=== PATIENT | female | born 1970 | race African-American/Black ===

== ENCOUNTER 2016-10-05 07:21 | Emergency (ER) | payer MEDICAID ==
[~2016-10-05] VITALS: Ht 165.1 cm; Wt 68.0 kg
[~2016-10-05 07:21] MED LIST: FLUC150T PO; HYDR-2758 PO; IBUP-1060 PO; LEVO500T59 PO; PRED-220 PO; PRED20TA PO
[2016-10-05 07:35] VITALS: BP 101/65
--- NOTE | 2016-10-05 07:51 | PHYS DOC ---
Past Medical History Past Medical History: STD, Other Additional Past Medical Histor: lupus Past Surgical History: Other Additional Past Surgical Histo: ORTHOPEDIC R ANKLE WITH HARDWARE Alcohol Use: None Drug Use: None Adult General Chief Complaint Chief Complaint: SEXUALLY TRANSMITTED DISEASE HPI HPI Patient is a 46 year old female presents to the emergency department. Patient states her boyfriend notified her that he had been treated for gonorrhea. Patient states she has been having yellow to green color drainage. Patient denies abdominal pain, nausea or vomiting. Patient also states she wants to checked for a UTI although denies urinary symptoms. Review of Systems Review of Systems Constitutional: Denies fever or chills [] Eyes: Denies change in visual acuity, redness, or eye pain [] HENT: Denies nasal congestion or sore throat [] Respiratory: Denies cough or shortness of breath [] Cardiovascular: No additional information not addressed in HPI [] GI: Denies abdominal pain, nausea, vomiting, bloody stools or diarrhea [] : Denies dysuria or hematuria C/o vaginal discharge Musculoskeletal: Denies back pain or joint pain [] Integument: Denies rash or skin lesions [] Neurologic: Denies headache, focal weakness or sensory changes [] Endocrine: Denies polyuria or polydipsia [] Current Medications Current Medications Current Medications Medications (Trade) Dose Ordered Sig/Elvis Start Time Stop Time Status Last Admin Dose Admin Azithromycin (Zithromax) 1,000 mg 1X ONCE 10/05/16 08:00 10/05/16 08:01 DC 10/05/16 08:04 1,000 MG Ceftriaxone Sodium (Rocephin Im) 250 mg 1X ONCE 10/05/16 08:00 10/05/16 08:01 DC 10/05/16 08:04 250 MG Metronidazole (Flagyl) 2,000 mg 1X ONCE 10/05/16 08:00 10/05/16 08:01 DC 10/05/16 08:05 2,000 MG Allergies Allergies Allergies Coded Allergies Type Severity Reaction Last Updated Verified naproxen Allergy Intermediate rash 12/21/14 Yes tramadol Allergy Intermediate rash 12/21/14 Yes Physical Exam Physical Exam Constitutional: Well developed, well nourished, no acute distress, non-toxic appearance. [] HENT: Normocephalic, atraumatic, bilateral external ears normal, oropharynx moist, no oral exudates, nose normal. [] Eyes: PERRLA, EOMI, conjunctiva normal, no discharge. [] Neck: Normal range of motion, no tenderness, supple, no stridor. [] Cardiovascular:Heart rate regular rhythm Lungs & Thorax: no respiratory distress Skin: Warm, dry, no erythema, no rash. [] Back: No tenderness Extremities: No tenderness, no cyanosis, no clubbing, ROM intact, no edema. [] Neurologic: Alert and oriented X 3, normal motor function, normal sensory function, no focal deficits noted. [] Psychologic: Affect normal, judgement normal, mood normal. [] pelvic exam: speculum exam: patient with thick yellow to white vaginal discharge noted in the vaginal vault. Manual exam: bilateral adnexal tenderness , CMT noted. Current Patient Data Vital Signs Vital Signs Date Time Temp Pulse Resp B/P (MAP) Pulse Ox O2 Delivery O2 Flow Rate FiO2 10/05/16 07:35 98.2 89 16 99 Room Air 98.2 Lab Values Laboratory Tests Test 10/05/16 06:55 10/05/16 07:37 POC Urine HCG, Qualitative Hcg negative (Negative) Urine Collection Type Void Urine Color Yellow Urine Clarity Cloudy Urine pH 6.0 Urine Specific [place] >=1.030 Urine Protein 30 mg/dL (NEG-TRACE) Urine Glucose (UA) Negative mg/dL (NEG) Urine Ketones (Stick) Negative mg/dL (NEG) Urine Blood Negative (NEG) Urine Nitrite Negative (NEG) Urine Bilirubin Negative (NEG) Urine Urobilinogen Dipstick 0.2 mg/dL (0.2 mg/dL) Urine Leukocyte Esterase Small (NEG) Urine RBC Occ /HPF (0-2) Urine WBC 5-10 /HPF (0-4) Urine Squamous Epithelial Cells Many /LPF Urine Bacteria Many /HPF (0-FEW) Microbiology 10/05/16 Wet Prep - Final, Complete EKG EKG [] Radiology/Procedures Radiology/Procedures [] Course & Med Decision Making Course & Med Decision Making Pertinent Labs and Imaging studies reviewed. (See chart for details) Patient will be treated with Rocephin, flagyl and zithromax. Wet prep positive for BV, urine positive for UTI, patient will also be treated for PID as she had CMT and adnexal tenderness bilaterally. Patient instructed to avoid sexual intercourse for the next two weeks. Drink plenty of fluids such as water and cranberry juice. Avoid cranberry juice cocktail, carbonated beverages, caffeine , alcohol and citrus fruits. Followup with primary care provider in 5-7 days. Signs and symptoms to return to the emergency department has been provided. Patient also requested diflucan for yeast infection. [] Dragon Disclaimer Dragon Disclaimer This electronic medical record was generated, in whole or in part, using a voice recognition dictation system. Departure Departure Impression: Primary Impression: Exposure to STD Additional Impressions: UTI (lower urinary tract infection) Bacterial vaginosis PID (acute pelvic inflammatory disease) Disposition: HOME, SELF-CARE Condition: STABLE Referrals: NO PCP (PCP) Patient Instructions: Bacterial Vaginosis, [id number], Pelvic Inflammatory Disease, Mbed-[id number], Sexually Transmitted Disease, Mbcl-[id number], Urinary Tract Infection, Wmhw-[id number] Additional Instructions: You have been treated for sexually transmitted disease, pelvic inflammatory disease, bacterial vaginosis and urinary tract infection. Drink plenty of fluids such as water and cranberry juice Avoid cranberry juice cocktail, carbonated beverages, caffeine, alcohol and citrus fruits as these are considered irritants to the bladder Avoid sexual intercourse for the next 2 weeks Medications as prescribed Followup with primary care provider in 7-10 days Return to emergency department as needed for signs and symptoms that become worse. Scripts Fluconazole (DIFLUCAN) 150 Mg Tablet 1 TAB PO ONCE, #2 TAB Prov: CARLOS MARTEL APRN 10/05/16 Metronidazole (FLAGYL) 500 Mg Tablet 1 TAB PO BID, #14 TAB Prov: CARLOS MARTEL APRN 10/05/16 Doxycycline Hyclate (DOXYCYCLINE HYCLATE) 100 Mg Capsule 1 CAP PO BID, #28 CAP Prov: CARLOS MARTEL APRN 10/05/16 Nitrofurantoin Monohyd/M-Cryst (MACROBID 100 MG CAPSULE) 100 Mg Capsule 1 CAP PO BID, #14 CAP Prov: CARLOS MARTEL APRN 10/05/16 Problem Qualifiers CARLOS MARTEL APRN Oct 05, 2016 07:51
[2016-10-05] MEDS ORDERED: AZITHROMYCIN 250 MG TABLET. PO ONE (08:00)
[2016-10-05] MEDS ORDERED: cefTRIAXone IM 250 MG VIAL IM ONE (08:00)
[2016-10-05] MEDS ORDERED: metroNIDAZOLE 500 MG TABLET PO ONE (08:00)
[2016-10-05 08:01] LABS: BILIRUBIN,URINE NEGATIVE (NEG); GLUCOSE,URINE NEGATIVE (NEG); NITRITE,URINE NEGATIVE (NEG); PROTEIN,URINE 30 mg/dL (NEG-TRACE); UROBILINOGEN,URINE 0.2 mg/dL (0.2 mg/dL)
[2016-10-05 08:19] LABS: BACTERIA,URINE MANY /HPF (0-FEW); RBC,URINE OCC /HPF (0-2); SQUAMOUS EPITHELIAL CELL,UR MANY /LPF
[2016-10-05] MEDS ORDERED: NITR100C62 PO (08:34)
[2016-10-05] MEDS ORDERED: METR500T PO (08:34)
[2016-10-05] MEDS ORDERED: DOXY100C2 PO (08:34)
[2016-10-05] MEDS ORDERED: FLUC150T PO (08:34)
[2016-10-06] MEDS ORDERED: CIPR500T94 PO (06:16)
[2016-10-06] MEDS ORDERED: METR500T PO (06:16)
== END 2016-10-05 08:47 | disposition home or self-care (01) ==
LOC: ER 07:21
DX: Z20.2 Contact with and (suspected) exposure to infections with a predominantly sexual mode of transmission (principal); N39.0 Urinary tract infection, site not specified; N76.0 Acute vaginitis; B96.89 Other specified bacterial agents as the cause of diseases classified elsewhere; N73.9 Female pelvic inflammatory disease, unspecified; M32.9 Systemic lupus erythematosus, unspecified; Z88.6 Allergy status to analgesic agent; Z88.5 Allergy status to narcotic agent
CPT/HCPCS: 36415; 81001; 81025; 87086; 87491; 87591; 96372; 99284; J0696; Q0111; Q0144

== ENCOUNTER 2016-10-06 01:17 | Emergency (ER) | payer MEDICAID ==
[~2016-10-06] VITALS: Ht 165.1 cm; Wt 65.8 kg
[~2016-10-06 01:17] MED LIST changes: +DOXY100C2 PO; +METR500T PO; +NITR100C62 PO
[2016-10-06 01:31] VITALS: BP 117/77
--- NOTE | 2016-10-06 01:47 | PHYS DOC ---
Past Medical History Past Medical History: STD, Other Additional Past Medical Histor: lupus Past Surgical History: Other Additional Past Surgical Histo: ORTHOPEDIC R ANKLE WITH HARDWARE Alcohol Use: None Drug Use: None Adult General Chief Complaint Chief Complaint: RECTAL BLEED HPI HPI Patient is a 46 year old F who presents with rectal bleeding 3 weeks. Patient states every time she goes to the bathroom she has blood on the toilet paper. Patient declines any abdominal pain. Patient declines any nausea/vomiting/ diarrhea. Patient has no fevers. Patient was seen yesterday the emergency room for an STD however failed to mention she's had this rectal bleeding. Patient also denies any dizziness. Pertinent exam findings: Rectal exam shows no external hemorrhoids or internal hemorrhoids stool is normal color and no gross blood seen. ED course: Patient was seen and examined in the emergency room CBC, CMP, lipase, Hemoccult was ordered 0610: Made patient aware of the abnormal findings on the CT scan and recommended she follow up for the spot on the liver and further evaluation for her colitis and possible colonoscopy. On reexamination the patient is feeling better explained we would send her home with antibiotics. Pertinent results: Hemoccult positive Hemoglobin 11.2 CT scan: IMPRESSION: 1. Moderate thickened appearance of the wall of the sigmoid colon with surrounding fat stranding likely colitis. 2. Small amount of free fluid identified in the pelvis. 2. Ill-defined peripherally enhancing nodular density identified in the distal tip of the right lobe of liver measuring 2.6 cm probably a hemangioma. Follow-up to document stability. MDM: After reviewing the chart, CC/HPI/PMH, physical exam, [lab results], [ radiological results], I do not believe the patient has intra-abdominal emergency warranting further workup and admission at this time. Mid patient where of abnormal CT findings and the need to follow-up on this findings with her PCP. Explained the patient will be sent home with antibiotics to help with her colitis and the possible need for colonoscopy. Patient is comfortable being discharged home. Patient is stable for discharge. Additional verbal discharge instructions were provided to the patient and that if symptoms get worse or any new symptoms arise that are worrisome to the patient she is to return to the emergency room immediately Review of Systems Review of Systems GEN: Denies fevers, chills, sweats HEENT: Denies blurred vision, sore throat CV: Denies chest pain RESP: Denies shortness of air, cough GI: Rectal bleeding NEURO: Denies confusion, dizziness MSK: Denies weakness, joint pain/swelling Current Medications Current Medications Current Medications Medications (Trade) Dose Ordered Sig/Elvis Start Time Stop Time Status Last Admin Dose Admin Info (Do NOT chart on this entry -- for MONITORING) 1 each PRN DAILY PRN 10/06/16 02:45 10/08/16 02:44 Iohexol (Omnipaque 300 Mg/ml) 75 ml 1X ONCE 10/06/16 03:00 10/06/16 03:01 DC 10/06/16 03:10 75 ML Ketorolac Tromethamine (Toradol) 30 mg 1X ONCE 10/06/16 03:00 10/06/16 03:01 DC 10/06/16 03:03 30 MG Allergies Allergies Allergies Coded Allergies Type Severity Reaction Last Updated Verified naproxen Allergy Intermediate rash 12/21/14 Yes tramadol Allergy Intermediate rash 12/21/14 Yes Physical Exam Physical Exam GEN.: No apparent distress. Alert and oriented. HEENT: Head is normocephalic, atraumatic NECK: Supple. LUNGS: CTAB. HEART: RRR, S1, S2 present. Peripheral pulses intact ABDOMEN: Soft, nontender. Positive bowel sounds. Rectal exam shows no external hemorrhoids or internal hemorrhoids stool is normal color and no gross blood seen. EXTREMITIES: Without any cyanosis. NEUROLOGIC: Normal speech, normal tone PSYCHIATRIC: Normal affect, normal mood. SKIN: No ulcerations Current Patient Data Vital Signs Vital Signs Date Time Temp Pulse Resp B/P (MAP) Pulse Ox O2 Delivery O2 Flow Rate FiO2 10/06/16 01:31 98.1 89 14 117/77 (90) 98 Room Air 98.1 Lab Values Laboratory Tests Test 10/06/16 01:42 10/06/16 02:10 Stool Occult Blood Positive (NEG) White Blood Count 5.3 x10^3/uL (4.0-11.0) Red Blood Count 3.37 x10^6/uL (3.50-5.40) L Hemoglobin 11.2 g/dL (12.0-15.5) L Hematocrit 31.8 % (36.0-47.0) L Mean Corpuscular Volume 94 fL (79-100) Mean Corpuscular Hemoglobin 33 pg (25-35) Mean Corpuscular Hemoglobin Concent 35 g/dL (31-37) Red Cell Distribution Width 14.5 % (11.5-14.5) Platelet Count 378 x10^3/uL (140-400) Neutrophils (%) (Auto) 38 % (31-73) Lymphocytes (%) (Auto) 39 % (24-48) Monocytes (%) (Auto) 18 % (0-9) H Eosinophils (%) (Auto) 5 % (0-3) H Basophils (%) (Auto) 1 % (0-3) Neutrophils # (Auto) 2.0 x10^3uL (1.8-7.7) Lymphocytes # (Auto) 2.1 x10^3/uL (1.0-4.8) Monocytes # (Auto) 0.9 x10^3/uL (0.0-1.1) Eosinophils # (Auto) 0.3 x10^3/uL (0.0-0.7) Basophils # (Auto) 0.0 x10^3/uL (0.0-0.2) Sodium Level 142 mmol/L (136-145) Potassium Level 3.4 mmol/L (3.5-5.1) L Chloride Level 108 mmol/L (98-107) H Carbon Dioxide Level 28 mmol/L (21-32) Anion Gap 6 (6-14) Blood Urea Nitrogen 13 mg/dL (7-20) Creatinine 0.8 mg/dL (0.6-1.0) Estimated GFR (Cockcroft-Gault) 93.0 BUN/Creatinine Ratio 16 (6-20) Glucose Level 150 mg/dL (70-99) H Calcium Level 8.5 mg/dL (8.5-10.1) Total Bilirubin 0.3 mg/dL (0.2-1.0) Aspartate Amino Transferase (AST) 24 U/L (15-37) Alanine Aminotransferase (ALT) 32 U/L (14-59) Alkaline Phosphatase 107 U/L (46-116) Total Protein 7.0 g/dL (6.4-8.2) Albumin 2.9 g/dL (3.4-5.0) L Albumin/Globulin Ratio 0.7 (1.0-1.7) L Lipase 68 U/L (73-393) L Laboratory Tests 10/06/16 02:10 Laboratory Tests 10/06/16 02:10 EKG EKG [] Radiology/Procedures Radiology/Procedures CT abd and pelvis: IMPRESSION: 1. Moderate thickened appearance of the wall of the sigmoid colon with surrounding fat stranding likely colitis. 2. Small amount of free fluid identified in the pelvis. 2. Ill-defined peripherally enhancing nodular density identified in the distal tip of the right lobe of liver measuring 2.6 cm probably a hemangioma. Follow-up to document stability.[] Course & Med Decision Making Course & Med Decision Making Pertinent Labs and Imaging studies reviewed. (See chart for details) [] Dragon Disclaimer Dragon Disclaimer This electronic medical record was generated, in whole or in part, using a voice recognition dictation system. Departure Departure Impression: Primary Impression: Abdominal pain Additional Impressions: Colitis Rectal bleeding Disposition: HOME, SELF-CARE Condition: IMPROVED Referrals: NO PCP (PCP) Patient Instructions: Colitis Additional Instructions: Please follow up with her family doctor next one to 2 days return if symptoms increase Scripts Metronidazole (FLAGYL) 500 Mg Tablet 1 TAB PO BID, #14 TAB Prov: NATALIO AG DO 10/06/16 Ciprofloxacin Hcl (CIPRO) 500 Mg Tablet 1 TAB PO BID, #14 TAB Prov: NATALIO AG DO 10/06/16 Problem Qualifiers Primary Impression: Abdominal pain Abdominal location: generalized Qualified Codes: R10.84 - Generalized abdominal pain NATALIO AG DO Oct 06, 2016 01:47
[2016-10-06 01:59] LABS: NEG OBC FOB NEG; POS OBC FOB POS
[2016-10-06 02:16] LABS: BASO % 1 % (0-3); EOS % 5 % (0-3); HEMATOCRIT 31.8 % (36.0-47.0); HEMOGLOBIN 11.2 g/dL (12.0-15.5); LYMPH # 2.1 x10^3/uL (1.0-4.8); LYMPH % 39 % (24-48); MEAN CORPUSCULAR HEMOGLOBIN 33 pg (25-35); MEAN CORPUSCULAR HGB CONC 35 g/dL (31-37); MEAN CORPUSCULAR VOLUME 94 fL (79-100); MONO % 18 % (0-9); NEUT % 38 % (31-73); PLATELET COUNT 378 x10^3/uL (140-400); RED BLOOD COUNT 3.37 x10^6/uL (3.50-5.40); RED CELL DISTRIBUTION WIDTH 14.5 % (11.5-14.5); WHITE BLOOD COUNT 5.3 x10^3/uL (4.0-11.0)
[2016-10-06 02:33] LABS: CALCIUM 8.5 mg/dL (8.5-10.1); CREATININE 0.8 mg/dL (0.6-1.0); POTASSIUM 3.4 mmol/L (3.5-5.1)
[2016-10-06 02:38] LABS: ALBUMIN 2.9 g/dL (3.4-5.0); ALBUMIN/GLOBULIN RATIO 0.7 (1.0-1.7); TOTAL BILIRUBIN 0.3 mg/dL (0.2-1.0)
[2016-10-06] MEDS ORDERED: CONTRAST GIVEN MC PRN (02:45)
[2016-10-06] MEDS ORDERED: IOHEXOL 300 MG/ML 75 ML VIAL IV ONE (03:00)
[2016-10-06] MEDS ORDERED: KETOROLAC TROMETHAMINE 30 MG/ML INJ. IV ONE (03:00)
--- NOTE | 2016-10-06 03:38 | ACF ---
Admission Forms Criteria GASTROINTESTINAL BLEEDING Clinical Indications for Inpatient Care (Place 'X' for any and all applicable criteria): Ongoing inpatient care may be indicated for gastrointestinal bleeding with ANY ONE of the following (4)(20)(21)(22)(23)(24): [X]I. Active bleeding (eg, fresh voluminous blood in emesis or nasogastric aspirate, or per rectum) [ ]II. Hemodynamic instability [ ]III. Anticoagulation therapy or coagulopathy ((eg, advanced liver disease, irreversible anticoagulation) [ ]IV. Ischemic colitis (22) [ ]V. Endoscopy showing arterial bleeding, adherent clot, nonbleeding visible vessel, varices, flat red spots, ulcer size greater than 2 cm, or portal hypertensive gastropathy [ ]. High-risk low platelet count [ ]VII. Anemia requiring inpatient care as indicated by ANY ONE of the following a)[ ] Cognitive impairment b)[ ] Syncope c)[ ] Heart failure d)[ ] Chest pain e)[ ] Dyspnea f)[ ] Other findings suggesting inadequate perfusion (eg, peripheral or myocardial ischemia, end organ dysfunction) [ ]VIII. High-risk low platelet count [ ]IX. Suspected variceal cause of bleeding as indicated by ANY ONE of the following(27)(28): a)[ ] Known varices b)[ ] Hepatomegaly or splenomegaly c)[ ] Ascites d)[ ] Jaundice or scleral icterus e)[ ] History of liver disease (eg, cirrhosis) f)[ ] Physical findings of portal hypertension (eg, caput medusa) g)[ ] Comorbid disorder indicating risk for portal vein thrombosis (eg , abdominal surgery, sepsis, shock, exchange transfusion, prior umbilical vein catheterization) Extended stay may be needed until ALL of the following are present(20)(38)(47): [ ]a) Hemodynamic stability [ ]b) No evidence of active bleeding (eg, stable Hematocrit) [ ]c) Platelet count, prothrombin time, and partial thromboplastin time acceptable for next level of care [ ]d) Surgical or other acute intervention not needed [ ]e) Oral hydration and diet tolerated The original [employer] content created by Darya [employer] has been revised. The portions of the content which have been revised are identified through the use of italic text or in bold, and D[employer] has neither reviewed nor approved the modified material. All other unmodified content is copyright [facility]. Please see references footnoted in the original [facility] edition 2016 Admission Criteria Met?: Yes KEEGAN THOMPSON Oct 06, 2016 03:38
--- NOTE | 2016-10-06 05:10 | RAD ---
Examination: CT of the abdomen and pelvis with IV contrast HISTORY: History of rectal bleeding for 3 weeks, pain COMPARISON: None available TECHNIQUE: Axial CT images of the abdomen and pelvis were performed with IV contrast. Coronal and sagittal images also performed. Exposure: One or more of the following individualized dose reduction techniques were utilized for this examination: 1. Automated exposure control 2. Adjustment of the mA and/or kV according to patient size 3. Use of iterative reconstruction technique FINDINGS: The visualized bibasilar lungs grossly appears unremarkable. No evidence of free air identified in the abdomen. The visualized liver, demonstrates peripheral nodular ill-defined hypodensity in the distal tip of the right lobe of the liver inferiorly probably hemangioma. The visualized spleen, adrenals grossly appears unremarkable. The gallbladder is mildly distended the stomach is minimally distended. The visualized pancreas grossly appears unremarkable. The small bowel is nondilated. There is feces and gas noted in the ascending, transverse, descending colon. There is moderate thickened appearance of the wall of the sigmoid colon with surrounding fat stranding probably secondary to colitis. The visualized appendix grossly appears unremarkable. Urinary bladder is mildly distended. Mild fat stranding identified in the pelvis region. The bilateral kidneys enhance symmetrically. The caliber of the aorta grossly appears unremarkable. No evidence of lytic bony destructive lesion. IMPRESSION: 1. Moderate thickened appearance of the wall of the sigmoid colon with surrounding fat stranding likely colitis. 2. Small amount of free fluid identified in the pelvis. 2. Ill-defined peripherally enhancing nodular density identified in the distal tip of the right lobe of liver measuring 2.6 cm probably a hemangioma. Follow-up to document stability. Electronically signed by: To Lowery MD (10/06/2016 5:06 AM)
[2016-10-06] MEDS ORDERED: CIPR500T94 PO (06:16)
[2016-10-06] MEDS ORDERED: METR500T PO (06:16)
== END 2016-10-06 06:29 | disposition home or self-care (01) ==
LOC: ER 01:17
DX: K52.9 Noninfective gastroenteritis and colitis, unspecified (principal); K62.5 Hemorrhage of anus and rectum; M32.9 Systemic lupus erythematosus, unspecified; Z88.6 Allergy status to analgesic agent; Z88.5 Allergy status to narcotic agent
CPT/HCPCS: 36415; 74177; 80053; 82274; 83690; 85027; 96374; 99285; J1885; Q9967

== ENCOUNTER 2017-01-08 18:58 | Emergency (ER) | payer MEDICAID ==
[~2017-01-08] VITALS: Ht 165.1 cm; Wt 65.8 kg
[~2017-01-08 18:58] MED LIST changes: +CIPR500T94 PO
[2017-01-08 19:26] VITALS: BP 111/84
[2017-01-08] MEDS ORDERED: TOBR5DRO6 EACHEYE (19:52)
[2017-01-08] MEDS ORDERED: KETO5DRO4 EACHEYE (19:52)
[2017-01-08] MEDS ORDERED: CETI10TA22 PO (19:53)
--- NOTE | 2017-01-08 19:54 | PHYS DOC ---
Past Medical History Past Medical History: Hypertension Additional Past Medical Histor: lupus Past Surgical History: Other Additional Past Surgical Histo: r ankle,r knee, r arm Alcohol Use: None Drug Use: None Adult General Chief Complaint Chief Complaint: EYE PROBLEMS HPI HPI Patient is a 46 year old female who presents with bilateral eye irritation with itching, yellow drainage, and swelling that she noted this morning. Patient denies any vision loss. Review of Systems Review of Systems Constitutional: Denies fever or chills [] Eyes: bilateral eye irritation, yellow drainage, and swelling Musculoskeletal: Denies back pain or joint pain [] Integument: Denies rash or skin lesions [] Neurologic: Denies headache, focal weakness or sensory changes [] Allergies Allergies Allergies Coded Allergies Type Severity Reaction Last Updated Verified naproxen Allergy Intermediate rash 12/21/14 Yes tramadol Allergy Intermediate rash 12/21/14 Yes Physical Exam Physical Exam Constitutional: Well developed, well nourished, no acute distress, non-toxic appearance. [] HENT: Normocephalic, atraumatic, bilateral external ears normal, oropharynx moist, no oral exudates, nose normal. [] Eyes: PERRLA, EOMI, bilateral upper eyelids have mild swelling. Bilateral conjunctiva are mildly injected with small amount of greenish discharge noted on bilateral eye infections. Skin: Warm, dry, no erythema, no rash. [] Neurologic: Alert and oriented X 3, normal motor function, normal sensory function, no focal deficits noted. [] Psychologic: Affect normal, judgement normal, mood normal. [] Current Patient Data Vital Signs Vital Signs Date Time Temp Pulse Resp B/P (MAP) Pulse Ox O2 Delivery O2 Flow Rate FiO2 01/08/17 19:26 98.4 98 18 98 Room Air 98.4 EKG EKG [] Radiology/Procedures Radiology/Procedures [] Course & Med Decision Making Course & Med Decision Making Pertinent Labs and Imaging studies reviewed. (See chart for details) Patient has bilateral bacterial conjunctivitis as well as allergic conjunctivitis area and recommended she tries to use [id number] Zyrtec for seasonal allergies, she is refusing. She was discharged with Zaditor eyedrops and tobramycin eyedrops. Follow-up with the career resource technician provided in 1-2 weeks. Dragon Disclaimer Dragon Disclaimer This electronic medical record was generated, in whole or in part, using a voice recognition dictation system. Departure Departure Impression: Primary Impression: Acute bacterial conjunctivitis Additional Impression: Allergic conjunctivitis, bilateral Disposition: 01 HOME, SELF-CARE Condition: STABLE Referrals: NO PCP (PCP) Fiorella DOMINGUEZ MD follow up in one week Patient Instructions: Allergic Conjunctivitis, Bacterial Conjunctivitis, Easy- to-Read Additional Instructions: You were seen with bilateral eye infections, this could've come from seasonal allergies affecting your eyes, you can get seasonal allergies anytime in your life including as adults. Use the prescribed medications as ordered. Keep your hands clean. Do not wear contact lenses until the infection has cleared out. Do not put makeup on until the infection has cleared up. Follow-up with the provided career resource technician in 1-2 weeks. Scripts Cetirizine Hcl (ZYRTEC) 10 Mg Tablet 1 TAB PO DAILY, #30 TAB 2 Refills Prov: ELISA VASQUEZ APRN 01/08/17 Ketotifen Fumarate (ZADITOR) 5 Ml Drops 1 DROP EACHEYE BID, #5 ML Prov: ELISA VASQUEZ APRN 01/08/17 Tobramycin (TOBRAMYCIN) 5 Ml Drops 1 DROP EACHEYE Q4HRS W/A, #5 ML Prov: ELISA VASQUEZ APRN 01/08/17 Problem Qualifiers Primary Impression: Acute bacterial conjunctivitis Laterality: bilateral Qualified Codes: H10.33 - Unspecified acute conjunctivitis, bilateral ELISA VASQUEZ APRN Jan 08, 2017 19:54
== END 2017-01-08 20:01 | disposition home or self-care (01) ==
LOC: ER 18:58
DX: H10.33 Unspecified acute conjunctivitis, bilateral (principal); H10.13 Acute atopic conjunctivitis, bilateral; I10 Essential (primary) hypertension; M32.9 Systemic lupus erythematosus, unspecified; Z88.6 Allergy status to analgesic agent
CPT/HCPCS: 99283

== ENCOUNTER 2017-01-12 19:02 | Emergency (ER) | payer MEDICAID ==
[~2017-01-12 19:02] MED LIST changes: +CETI10TA22 PO; +KETO5DRO4 EACHEYE; +TOBR5DRO6 EACHEYE
[2017-01-12 19:42] VITALS: BP 133/80
[2017-01-12] MEDS ORDERED: METH4TAB6 PO (20:17)
[2017-01-12] MEDS ORDERED: TRIA15CR TP (20:17)
--- NOTE | 2017-01-12 20:17 | PHYS DOC ---
Past Medical History Past Medical History: Hypertension Additional Past Medical Histor: lupus Past Surgical History: Other Additional Past Surgical Histo: r ankle,r knee, r arm Alcohol Use: None Drug Use: None Adult General Chief Complaint Chief Complaint: PAIN CONTROL HPI HPI Patient is a 46 year old female presents emergency room stating that she is having a lupus flare up. She states that she is having pain and discomfort above her eyelids. She states that she is having some joint pain and discomfort. She also states that she has a rash in which she needs tramadol: Cream for. Patient states that she has had no fevers no chills no nausea vomiting. Patient is also requesting that the prednisone for her flare up. Review of Systems Review of Systems Constitutional: Denies fever or chills [] Eyes: Denies change in visual acuity, redness, or eye pain [] HENT: Denies nasal congestion or sore throat [] Respiratory: Denies cough or shortness of breath [] Cardiovascular: No additional information not addressed in HPI [] GI: Denies abdominal pain, nausea, vomiting, bloody stools or diarrhea [] : Denies dysuria or hematuria [] Musculoskeletal: Denies back pain generalized joint pain [] Integument: rash denies skin lesions [] Neurologic: Denies headache, focal weakness or sensory changes [] Endocrine: Denies polyuria or polydipsia [] Allergies Allergies Allergies Coded Allergies Type Severity Reaction Last Updated Verified naproxen Allergy Intermediate rash 12/21/14 Yes tramadol Allergy Intermediate rash 12/21/14 Yes Physical Exam Physical Exam Constitutional: Well developed, well nourished, no acute distress, non-toxic appearance. [] HENT: Normocephalic, atraumatic, bilateral external ears normal, oropharynx moist, no oral exudates, nose normal. [] Eyes: PERRLA, EOMI, conjunctiva normal, no discharge. Bilateral eye irritation and the upper eyelids. Neck: Normal range of motion, no tenderness, supple, no stridor. [] Cardiovascular:Heart rate regular rhythm, no murmur [] Lungs & Thorax: Bilateral breath sounds clear to auscultation [] Abdomen: Bowel sounds normal, soft, no tenderness, no masses, no pulsatile masses. [] Skin: Warm, dry, no erythema, patient with no significant rash noted on the left side of her neck. Back: No tenderness Extremities: No tenderness, no cyanosis, no clubbing, ROM intact, no edema. [] Neurologic: Alert and oriented X 3, normal motor function, normal sensory function, no focal deficits noted. [] Psychologic: Affect normal, judgement normal, mood normal. [] Current Patient Data Vital Signs Vital Signs Date Time Temp Pulse Resp B/P (MAP) Pulse Ox O2 Delivery O2 Flow Rate FiO2 01/12/17 19:42 98.1 121 18 100 Room Air 98.1 EKG EKG [] Radiology/Procedures Radiology/Procedures [] Course & Med Decision Making Course & Med Decision Making Pertinent Labs and Imaging studies reviewed. (See chart for details) Patient will be discharged home with methylprednisone. She'll also be sent home with her Triamolone cream. Patient was recommended follow-up with her primary care physician. Patient was encouraged to use medication as prescribed. Signs and symptoms to return back to emergency department as been provided. All questions and concerns been answered at patient's bedside. [] Dragon Disclaimer Dragon Disclaimer This electronic medical record was generated, in whole or in part, using a voice recognition dictation system. Departure Departure Impression: Primary Impression: Lupus Disposition: HOME, SELF-CARE Condition: STABLE Referrals: NO PCP (PCP) Patient Instructions: Lupus Additional Instructions: Activity as tolerated. Medication as prescribed. Follow-up to primary care physician next 3-5 days. Return back to emergency prior signs symptoms of become worse. Scripts Methylprednisolone (METHYLPREDNISOLONE) 4 Mg Tab.ds.pk 4 MG PO UD, #21 TAB Prov: CARLOS MARTEL APRN 01/12/17 Triamcinolone Acetonide (TRIAMCINOLONE ACETONIDE 0.5% CREAM) 15 Gm Cream..g. 1 PAM TP BID, #30 GM Prov: CARLOS MARTEL APRN 01/12/17 CARLOS MARTEL APRN Jan 12, 2017 20:17
== END 2017-01-12 20:23 | disposition home or self-care (01) ==
LOC: ER 19:02
DX: M32.9 Systemic lupus erythematosus, unspecified (principal); I10 Essential (primary) hypertension; Z88.5 Allergy status to narcotic agent; Z88.8 Allergy status to other drugs, medicaments and biological substances
CPT/HCPCS: 99283

== ENCOUNTER 2017-01-31 13:01 | Emergency (ER) | payer MEDICAID ==
[~2017-01-31] VITALS: Ht 165.1 cm; Wt 65.8 kg
[~2017-01-31 13:01] MED LIST changes: +METH4TAB6 PO; +TRIA15CR TP
[2017-01-31 14:45] VITALS: BP 123/67
[2017-01-31] MEDS ORDERED: METH4TAB2 PO (14:53)
[2017-01-31] MEDS ORDERED: DOXY100C2 PO (14:53)
--- NOTE | 2017-01-31 14:53 | PHYS DOC ---
Past Medical History Past Medical History: Hypertension Additional Past Medical Histor: lupus Past Surgical History: Other Additional Past Surgical Histo: r ankle,r knee, r arm Alcohol Use: None Drug Use: None Adult General Chief Complaint Chief Complaint: SEXUALLY TRANSMITTED DISEASE HPI HPI Patient is a 46 year old female with a history of lupus presents to the ED complaining of STD x 1 week. Describes it as green discharge and odorous. Rates pain as 4/10. States her partner had similar symptoms and was treated. History of previous STD's and PID. Denies fever, n/v, dizziness, weakness, abdominal pain, shortness of breath or weakness. Review of Systems Review of Systems Constitutional: Denies fever or chills [] Eyes: Denies change in visual acuity, redness, or eye pain [] HENT: Denies nasal congestion or sore throat [] Respiratory: Denies cough or shortness of breath [] Cardiovascular: No additional information not addressed in HPI [] GI: Denies abdominal pain, nausea, vomiting, bloody stools or diarrhea [] : Complains of dysuria and vaginal discharge. Denies Hematuria.] Musculoskeletal: Denies back pain or joint pain [] Integument: Denies rash or skin lesions [] Neurologic: Denies headache, focal weakness or sensory changes [] Endocrine: Denies polyuria or polydipsia [] Current Medications Current Medications Current Medications Medications (Trade) Dose Ordered Sig/Elvis Start Time Stop Time Status Last Admin Dose Admin Azithromycin (Zithromax) 1,000 mg 1X ONCE 01/31/17 15:00 01/31/17 15:01 DC 01/31/17 15:12 1,000 MG Ceftriaxone Sodium (Rocephin Im) 250 mg 1X ONCE 01/31/17 15:00 01/31/17 15:01 DC 01/31/17 15:13 250 MG Lidocaine HCl (Xylocaine-Mpf 1% Vial) 2 ml STK-MED ONCE 01/31/17 15:22 01/31/17 15:23 DC Metronidazole (Flagyl) 2,000 mg 1X ONCE 01/31/17 15:15 01/31/17 15:16 DC 01/31/17 15:12 2,000 MG Allergies Allergies Allergies Coded Allergies Type Severity Reaction Last Updated Verified naproxen Allergy Intermediate rash 12/21/14 Yes tramadol Allergy Intermediate rash 12/21/14 Yes Physical Exam Physical Exam Constitutional: Well developed, well nourished, no acute distress, non-toxic appearance. [] HENT: Normocephalic, atraumatic, bilateral external ears normal, oropharynx moist, no oral exudates, nose normal. [] Eyes: PERRLA, EOMI, conjunctiva normal, no discharge. [] Neck: Normal range of motion, no tenderness, supple, no stridor. [] Cardiovascular:Heart rate regular rhythm, no murmur [] Lungs & Thorax: Bilateral breath sounds clear to auscultation [] Abdomen: Bowel sounds normal, soft, no tenderness, no masses, no pulsatile masses. [] PATIENT REFUSED EXAM. Skin: Warm, dry, no erythema, no rash. [] Back: No tenderness, no CVA tenderness. [] Extremities: No tenderness, no cyanosis, no clubbing, ROM intact, no edema. [] Neurologic: Alert and oriented X 3, normal motor function, normal sensory function, no focal deficits noted. [] Psychologic: Affect normal, judgement normal, mood normal. [] Current Patient Data Vital Signs Vital Signs Date Time Temp Pulse Resp B/P (MAP) Pulse Ox O2 Delivery O2 Flow Rate FiO2 01/31/17 14:45 97.7 92 18 97 Room Air 97.7 Lab Values Laboratory Tests Test 01/31/17 14:10 Urine Collection Type Unknown Urine Color Yellow Urine Clarity Clear Urine pH 6.5 Urine Specific [place] >=1.030 Urine Protein 30 mg/dL (NEG-TRACE) Urine Glucose (UA) >=1000 mg/dL (NEG) Urine Ketones (Stick) Negative mg/dL (NEG) Urine Blood Negative (NEG) Urine Nitrite Negative (NEG) Urine Bilirubin Negative (NEG) Urine Urobilinogen Dipstick 0.2 mg/dL (0.2 mg/dL) Urine Leukocyte Esterase Small (NEG) Urine RBC 0 /HPF (0-2) Urine WBC Occ /HPF (0-4) Urine Squamous Epithelial Cells Mod /LPF Urine Bacteria 0 /HPF (0-FEW) Urine Mucus Mod /LPF EKG EKG [] Radiology/Procedures Radiology/Procedures [] Course & Med Decision Making Course & Med Decision Making Pertinent Labs and Imaging studies reviewed. (See chart for details) []Patient refuses exam. Discussed risks. Patient verbalizes understanding. Will treat patient empirically in ED and discharge with doxycycline. Discussed making sexual partners aware. Discussed follow-up std testing at the [facility]. Will discharge with Medrol Dosepak at patient's request for her lupus symptoms. Discussed follow-up and provided education. Discussed reasons to return to the ED. Patient understands and agrees with plan. Dragon Disclaimer Dragon Disclaimer This electronic medical record was generated, in whole or in part, using a voice recognition dictation system. Departure Departure Impression: Primary Impression: Cystitis Additional Impression: Medication refill Disposition: HOME, SELF-CARE Condition: STABLE Referrals: NO PCP (PCP) CORI SOUSA MD, MICHAEL M MD Patient Instructions: Lupus, Sexuality and Disability Scripts Doxycycline Hyclate (DOXYCYCLINE HYCLATE) 100 Mg Capsule 1 CAP PO BID, #20 CAP Prov: OSMIN TORRES 01/31/17 Methylprednisolone (MEDROL) 4 Mg Tab.ds.pk 1 PKG PO UD, #1 PKG Prov: OSMIN TORRES 01/31/17 Problem Qualifiers OSMIN TORRES Jan 31, 2017 14:53
[2017-01-31] MEDS ORDERED: AZITHROMYCIN 250 MG TABLET. PO ONE (15:00)
[2017-01-31] MEDS ORDERED: cefTRIAXone IM 250 MG VIAL IM ONE (15:00)
[2017-01-31 15:10] LABS: BILIRUBIN,URINE NEGATIVE (NEG); GLUCOSE,URINE >=1000 mg/dL (NEG); NITRITE,URINE NEGATIVE (NEG); PH,URINE 6.5; PROTEIN,URINE 30 mg/dL (NEG-TRACE); UROBILINOGEN,URINE 0.2 mg/dL (0.2 mg/dL)
[2017-01-31] MEDS ORDERED: metroNIDAZOLE 500 MG TABLET PO ONE (15:15)
[2017-01-31 15:20] LABS: BACTERIA,URINE 0 /HPF (0-FEW); RBC,URINE 0 /HPF (0-2); WBC,URINE OCC /HPF (0-4)
[2017-01-31 15:21] LABS: SQUAMOUS EPITHELIAL CELL,UR MOD /LPF
[2017-01-31] MEDS ORDERED: LIDOCAINE 1% PF 2 ML VIAL. ONE (15:22)
[2017-01-31] MEDS ORDERED: LIDOCAINE 2% 20 ML VIAL. IJ ONE (15:30)
[2017-01-31] MEDS ORDERED: LIDOCAINE 1% PF 2 ML VIAL. INJ ONE (15:30)
== END 2017-01-31 15:25 | disposition home or self-care (01) ==
LOC: ER 13:01
DX: N30.90 Cystitis, unspecified without hematuria (principal); Z76.0 Encounter for issue of repeat prescription; I10 Essential (primary) hypertension; M32.9 Systemic lupus erythematosus, unspecified; Z88.6 Allergy status to analgesic agent; Z88.5 Allergy status to narcotic agent
CPT/HCPCS: 81001; 96372; 99284; J0696; Q0144; J2001

== ENCOUNTER 2017-03-06 17:15 | Emergency (ER) | payer MEDICAID ==
[~2017-03-06] VITALS: Ht 165.1 cm; Wt 68.0 kg
[~2017-03-06 17:15] MED LIST changes: +BISA-42 PO; +METH4TAB2 PO; +PEG4000S8 PO; +TRIA15CR2 TP
[2017-03-06 17:30] VITALS: BP 110/66
[2017-03-06] MEDS ORDERED: predniSONE 20 MG TABLET PO ONE (18:00)
[2017-03-06] MEDS ORDERED: METH4TAB2 PO (18:01)
--- NOTE | 2017-03-06 18:01 | PHYS DOC ---
Past Medical History Past Medical History: Hypertension, Other Additional Past Medical Histor: lupus Past Surgical History: Other Additional Past Surgical Histo: r ankle,r knee, r arm Additional Information: 3 TO 4 CIGARETTES A DAY Alcohol Use: None Drug Use: None Adult General Chief Complaint Chief Complaint: OTHER COMPLAINTS HPI HPI Patient is a 47 year old female who presents with complaint of generalized body aches. Patient states that she has history of systemic lupus erythematosus. The patient states that she has had previous episodes of similar symptoms associated with a lupus flareup. Patient admits to increased fatigue, joint and body aches, and decreased appetite. Patient denies chest pain, shortness of breath, abdominal pain, or fever. Patient states that she has not been following with a primary doctor. Patient states that she is previously on Plaquenil but has not been on this medication for several months as she has not been following with a primary doctor. The patient states that she has been treated in the past with steroid therapy which has helped reduce her flareups. The patient states that she is not having any atypical symptoms compared to previous episodes. Review of Systems Review of Systems Constitutional: Fatigue, denies fever or chills [] Eyes: Denies change in visual acuity, redness, or eye pain [] HENT: Denies nasal congestion or sore throat [] Respiratory: Denies cough or shortness of breath [] Cardiovascular: Denies chest pain or edema[] GI: Anorexia, denies abdominal pain, nausea, vomiting, bloody stools or diarrhea [] : Denies dysuria or hematuria [] Musculoskeletal: Myalgias, joint pain[] Integument: Denies rash or skin lesions [] Neurologic: Denies headache, focal weakness or sensory changes [] All other systems were reviewed and found to be within normal limits, except as documented in this note. Allergies Allergies Allergies Coded Allergies Type Severity Reaction Last Updated Verified naproxen Allergy Intermediate rash 12/21/14 Yes tramadol Allergy Intermediate rash 12/21/14 Yes Physical Exam Physical Exam Constitutional: Alert, afebrile, no acute distress. [] HENT: Normocephalic, atraumatic, bilateral external ears normal, oropharynx moist, no oral exudates, nose normal. [] Eyes: PERRLA, EOMI, conjunctiva normal, no discharge. [] Neck: Normal range of motion, no tenderness, supple, no stridor. [] Cardiovascular: Tachycardia, regular rhythm, no murmur [] Lungs & Thorax: Bilateral breath sounds clear to auscultation [] Abdomen: Bowel sounds normal, soft, no tenderness, no masses, no pulsatile masses. [] Skin: Warm, dry, no erythema, no rash. [] Back: No tenderness, no CVA tenderness. [] Extremities: Mild diffuse muscle tenderness to palpation, no joint deformities, no cyanosis, no clubbing, ROM intact, no edema. [] Neurologic: Alert and oriented X 3, normal motor function, normal sensory function, no focal deficits noted. [] Current Patient Data Vital Signs Vital Signs Date Time Temp Pulse Resp B/P (MAP) Pulse Ox O2 Delivery O2 Flow Rate FiO2 03/06/17 17:30 97.5 100 18 110/66 (81) 99 Room Air 97.5 Lab Values None performed EKG EKG Rhythm strip interpretation by me: Heart rate 108, sinus tachycardia, no ectopy [] Radiology/Procedures Radiology/Procedures Not performed[] Course & Med Decision Making Course & Med Decision Making Pertinent Labs and Imaging studies reviewed. (See chart for details) The patient states that she would like to receive steroid therapy at this time and does not wish to have any further testing done. Patient has mild tachycardia but no other significant findings at this time. The patient is in no acute distress. The patient was treated with oral prednisone in the emergency department. The patient was prescribed Medrol Dosepak to continue on outpatient therapy. Patient was referred to [facility] to establish follow-up care. Advised follow-up in the next 5-7 days for reevaluation. Advised return emergency department for any worsening symptoms. Patient voiced understanding and in agreement with treatment plan. Dragon Disclaimer Dragon Disclaimer This electronic medical record was generated, in whole or in part, using a voice recognition dictation system. Departure Departure Impression: Primary Impression: Systemic lupus erythematosus Disposition: 01 HOME, SELF-CARE Condition: STABLE Referrals: NO PCP (PCP) Patient Instructions: Lupus Additional Instructions: Follow-up in 5-7 days with your primary doctor for reevaluation. Return to the emergency department for any worsening symptoms. Scripts Methylprednisolone (MEDROL) 4 Mg Tab.ds.pk 1 PKG PO UD, #1 PKG Prov: NESSA GASPAR MD 03/06/17 Problem Qualifiers Primary Impression: Systemic lupus erythematosus Systemic lupus erythematosus type: unspecified Systemic lupus erythematosus organ involvement: unspecified Qualified Codes: M32.9 - Systemic lupus erythematosus, unspecified NESSA GASPAR MD Mar 06, 2017 18:01
== END 2017-03-06 18:10 | disposition home or self-care (01) ==
LOC: ER 17:15
DX: M32.9 Systemic lupus erythematosus, unspecified (principal); M79.1 Myalgia; I10 Essential (primary) hypertension; F17.210 Nicotine dependence, cigarettes, uncomplicated; Z88.6 Allergy status to analgesic agent
CPT/HCPCS: 99283; J7512

== ENCOUNTER 2017-03-25 12:53 | Emergency (ER) | payer MEDICAID ==
[~2017-03-25] VITALS: Ht 165.1 cm; Wt 68.0 kg
[2017-03-25 13:04] VITALS: BP 136/81
[2017-03-25] MEDS ORDERED: methylPREDNISolone SOD SUCC PF 125 MG/2 ML VIAL. IM ONE (13:15)
[2017-03-25] MEDS ORDERED: KETO5DRO4 EACHEYE (13:23)
[2017-03-25] MEDS ORDERED: METH4TAB2 PO (13:23)
--- NOTE | 2017-03-25 13:24 | PHYS DOC ---
Past Medical History Past Medical History: Hypertension, Other Additional Past Medical Histor: lupus Past Surgical History: Other Additional Past Surgical Histo: r ankle,r knee, r arm Alcohol Use: None Drug Use: None Adult General Chief Complaint Chief Complaint: PAIN CONTROL HPI HPI Patient is a 47 year old female with history of hypertension and lupus who presents today complaining of generalized body pain from her lupus. Patient states she supposed to be on Plaquenil but has not taken anything for months because she has to see a electric cell tender to prescribe this medication. She is requesting a steroid injection and Medrol Dosepak. She states this pain is consistent with her chronic lupus and is nothing unusual today. She is also requesting some eyedrops. She states she feels her eyes "puffy"/swollen. Review of Systems Review of Systems Constitutional: Generalized body aches Eyes: puffy/swollen eyes. Denies change in visual acuity, redness, or eye pain [ ] HENT: Denies nasal congestion or sore throat [] Respiratory: Denies cough or shortness of breath [] Cardiovascular: No additional information not addressed in HPI [] GI: Denies abdominal pain, nausea, vomiting, bloody stools or diarrhea [] : Denies dysuria or hematuria [] Musculoskeletal: Denies back pain or joint pain [] Integument: Denies rash or skin lesions [] Neurologic: Denies headache, focal weakness or sensory changes [] All other systems were reviewed and found to be within normal limits, except as documented in this note. Current Medications Current Medications Current Medications Medications (Trade) Dose Ordered Sig/Elvis Start Time Stop Time Status Last Admin Dose Admin Methylprednisolone Sodium Succinate (SOLU-Medrol 125MG VIAL) 125 mg 1X ONCE 03/25/17 13:15 03/25/17 13:16 DC Allergies Allergies Allergies Coded Allergies Type Severity Reaction Last Updated Verified naproxen Allergy Intermediate rash 12/21/14 Yes tramadol Allergy Intermediate rash 12/21/14 Yes Physical Exam Physical Exam Constitutional: Well developed, well nourished, no acute distress, non-toxic appearance. [] HENT: Normocephalic, atraumatic, bilateral external ears normal, oropharynx moist, no oral exudates, nose normal. [] Eyes: PERRLA, EOMI, conjunctiva normal, no discharge. [] Neck: Normal range of motion, no tenderness, supple, no stridor. [] Cardiovascular:Heart rate regular rhythm, no murmur [] Lungs & Thorax: Bilateral breath sounds clear to auscultation [] Abdomen: Bowel sounds normal, soft, no tenderness, no masses, no pulsatile masses. [] Skin: Warm, dry, no erythema, no rash. [] Back: No tenderness, no CVA tenderness. [] Extremities: No tenderness, no cyanosis, no clubbing, ROM intact, no edema. [] Neurologic: Alert and oriented X 3, normal motor function, normal sensory function, no focal deficits noted. [] Psychologic: Affect normal, judgement normal, mood normal. [] Current Patient Data Vital Signs Vital Signs Date Time Temp Pulse Resp B/P (MAP) Pulse Ox O2 Delivery O2 Flow Rate FiO2 03/25/17 13:04 97.6 96 18 98 Room Air 97.6 EKG EKG [] Radiology/Procedures Radiology/Procedures [] Course & Med Decision Making Course & Med Decision Making Pertinent Labs and Imaging studies reviewed. (See chart for details) Patient is in the ED with the lupus chronic pain. There is nothing unusual about her pain today. She'll be given Medrol dose pack at discharge as well as Solu-Medrol IM in the ED. She was discharged with Zaditor for upper eyelid swelling, she stated this helped before. I encouraged patient to follow-up with her electric cell tender and PCP as soon as she can. Natasha Disclaimer Natasha Disclaimer This electronic medical record was generated, in whole or in part, using a voice recognition dictation system. Departure Departure Impression: Primary Impression: Systemic lupus erythematosus Disposition: 01 HOME, SELF-CARE Condition: STABLE Referrals: NO PCP (PCP) follow up with a electric cell tender and primary care doctor as soon as you can Patient Instructions: Lupus Additional Instructions: You were seen with chronic systemic lupus pain. We highly recommend you establish care with a electric cell tender as well as primary care doctor and follow- up. Take the prescribed medicines as ordered. Scripts Ketotifen Fumarate (ZADITOR) 5 Ml Drops 1 DROP EACHEYE BID, #5 ML 1 Refill Prov: MUTUNGA,ELISA BAND DIRECTOR 03/25/17 Methylprednisolone (MEDROL) 4 Mg Tab.ds.pk 1 PKG PO UD, #1 PKG Prov: MUTUNGA,ELISA BAND DIRECTOR 11/28/17 Problem Qualifiers Primary Impression: Systemic lupus erythematosus Systemic lupus erythematosus type: unspecified Systemic lupus erythematosus organ involvement: unspecified Qualified Codes: M32.9 - Systemic lupus erythematosus, unspecified ELISA VASQUEZ APRN Mar 25, 2017 13:24
== END 2017-03-25 13:28 | disposition home or self-care (01) ==
LOC: ER 12:53
DX: M32.9 Systemic lupus erythematosus, unspecified (principal); H57.8 Other specified disorders of eye and adnexa; I10 Essential (primary) hypertension; Z88.5 Allergy status to narcotic agent; Z88.6 Allergy status to analgesic agent
CPT/HCPCS: 96372; 99283; J2930